=== PATIENT | male | born 1940 | race Caucasian/White ===

== ENCOUNTER 2021-10-28 09:44 | Emergency (ER) | payer MEDICARE | END 2021-10-28 10:16 | disposition home or self-care (01) | LOC: JD.ED 09:44 | DX: S90.512A Abrasion, left ankle, initial encounter (principal); J44.9 Chronic obstructive pulmonary disease, unspecified; Z88.5 Allergy status to narcotic agent; Z90.49 Acquired absence of other specified parts of digestive tract; X58.XXXA Exposure to other specified factors, initial encounter | CPT/HCPCS: 99282 ==